=== PATIENT | female | born 1970 | race Caucasian/White ===

== ENCOUNTER → 2018-11-20 16:26 | Outpatient (CLI) | payer BC, SELFPAY ==
--- NOTE | 2018-11-20 16:38 | VDLE_ITS ---
Reason For Study: pain RIGHT GSV is normal. CFV is compressible, spontaneous, phasic, competent and demonstrates normal augmentation. FV is compressible, spontaneous, phasic, competent and demonstrates normal augmentation. POP V is compressible, spontaneous, phasic, competent and demonstrates normal augmentation. T/P Trunk is compressible. PTV is compressible. RT PerV is compressible. Procedure Exam performed in department. The exam was diagnostic. A preliminary report was called and/or faxed to Dr. Mendoza. Interpretation Summary There is no evidence of right lower extremity deep vein thrombosis. Right great saphenous vein appears patent and compressible segmentally. Ordering Physician: JESICA AGUIRRE Referring Physician: MD Reji Henrique Performed By: Leoncio Tompkins RVT
== END ==
PROVIDERS: Family Provider Family Medicine; PCP Family Medicine
DX: M79.604 Pain in right leg (principal)
CPT/HCPCS: 93971

== ENCOUNTER 2020-08-26 06:00 | Day surgery (SDC) | payer OTHER, SELFPAY ==
[2020-08-26 06:29] VITALS: BP 109/62; PULSE 80; RESP 18; TEMP 36.5; O2SAT 100; BMI 30.8
[2020-08-26] MEDS: Lidocaine 2% (20 ml mdv) 20 ML Vial (07:23)
--- NOTE | 2020-08-26 08:01 | PCM.OP.BLANK ---
Problems Associated Problem List Diagnoses (1) Left carpal tunnel syndrome: Operative Report Date of Procedure: 08/26/20 Preoperative diagnosis: Left Carpal tunnel syndrome Postoperative diagnosis: Same Title of operation: Open Left carpal tunnel release Surgeon: Dr. Arvind Montanez Anesthesia: Local Complications: None EBL: Minimal Indications for surgery: Patient seen and evaluated in the office. Diagnosed with carpal tunnel syndrome. They have failed adequate nonoperative treatment. Due to persistent symptoms they wish to proceed with carpal tunnel release surgery appropriate informed consent was obtained and signed. Details of procedure: Patient was taken to the OR and transferred to the OR table. Appropriate timeouts were performed. Well-padded tourniquet was applied to the operative upper extremity proximally. Area was prepped with alcohol. Local anesthetic was administered using 8 cc of 2% lidocaine plain. Operative extremity was prepped padded and draped in usual orthopedic sterile fashion for the procedure. Limb was exsanguinated. Tourniquet applied to 250 mmHg. Three centimeter incision was made over the palm. Carefully taken through skin, subcutaneous tissue, down onto the transverse carpal ligament. Transverse carpal ligament was opened at the midportion with a knife. Elevator was carefully placed underneath the transverse carpal ligament in a distal direction. I dissected down onto that with a knife. Elevator was then placed in a proximal direction, again directly underneath the transverse carpal ligament. I dissected down on that with a knife. Scissors were used at the proximal extent placed under direct visualization. This fully released the proximal extent of the transverse carpal ligament. At this point my small finger was placed proximally and distally to assure complete release of the transverse carpal ligament over the median nerve. FPL tendon was noted. No significant abnormalities were noted at the region of the carpal canal. Tourniquet was let down at 7 minutes. Bleeding controlled with the Bovie. Wound thoroughly irrigated. No undue bleeding noted. Skin edges were reapproximated with a 5-0 nylon. Sterile bandage was applied. Patient was awoken from the anesthetic. Transferred to the room bed. To recovery room in satisfactory condition. Patient will be discharged home. Ice and elevation recommended. Pain medication as needed. Follow-up in the office next week as scheduled. This note was generated with [employer] dictation software. It may contain incorrect words, spelling, and punctuation that were not noted in checking the note before signing.
[2020-08-26 08:09] VITALS: BP 109/62; BP 120/70; PULSE 70; RESP 16; TEMP 36.7; O2SAT 99
== END 2020-08-26 08:22 | disposition home or self-care (01) ==
LOC: SDC 06:06 → AC 06:07
PROVIDERS: PCP Family Medicine; Referring Provider Orthopaedic Surgery; Visit Provider Orthopaedic Surgery
PROC: (CPT 64721; principal; 2020-08-26 07:15)
DX: G56.02 Carpal tunnel syndrome, left upper limb (principal); F41.9 Anxiety disorder, unspecified; Z79.899 Other long term (current) drug therapy
CPT/HCPCS: 64721

== ENCOUNTER 2024-02-07 09:43 | Day surgery (SDC) | payer BC, SELFPAY ==
--- NOTE | 2024-02-05 11:10 | PAT.ANESEVAL ---
Pre-Assessment Diagnosis/Proposed Procedure Planned Operative Procedure(s): RIGHT SHOULDER ARTHROSCOPIC RTC REPAIR,SUBCROMIAL DECOMPRESSION MINI OPEN BICEPS TENODESIS Anesthesia History Anesthesia History - acquisition associate: Anesthesia History - acquisition associate Hx Hospitalization No 02/05/24 08:26 Any Problems With Anesthesia No 02/05/24 08:26 Cholinesterase deficiency No 02/05/24 08:26 You/Your Family Experience No 02/05/24 08:26 fever (hyperthermia) with Relationship Recent Exposure to Contagious No 02/04/24 11:59 Disease Does patient have nerve No 02/05/24 08:26 stimulator Patient instructed to have device shut off --Does patient have Pacemaker or ICD? When Was Last Pacemaker Check QUESTION #4 FULL TEXT: You/Your Family Experience fever (hyperthermia) with Anesthesia Last Oral Intake Last Oral intake: Last Oral Intake NPO since Meds taken in AM with sips of water? Meds patient instructed to take am of surgery PONV PONV - acquisition associate: PONV - acquisition associate Female Yes 02/05/24 08:26 HX of Motion Sickness Yes 02/05/24 08:26 HX of N/V After Surgery No 02/05/24 08:26 Non-Smoker Yes 02/05/24 08:26 Duration of Surgery greater Yes 02/05/24 08:26 than 60 minutes Number of Risk Factors 4 02/05/24 08:26 PONV Score Severe Risk 02/05/24 08:26 Height & Weight Height & Weight: Anesthesia: Height & Weight Height 5 ft 4 in 02/04/24 11:59 Respiratory Assessment Respiratory Assessment - acquisition associate: Respiratory Tract Infection Hx - acquisition associate Hx Respiratory Tract Infection No 02/05/24 08:26 STOP Sleep Apnea STOP Sleep Apnea - acquisition associate: STOP Sleep Apnea - acquisition associate Hx Hypertension No 02/05/24 08:26 Hx Sleep Apnea No 02/05/24 08:26 CPAP BIPAP Do you snore loudly (louder Yes 02/05/24 08:26 than talking or can be heard Do you often feel tired/ No 02/05/24 08:26 fatigued/ sleepy during daytime? Has anyone observed you stop No 02/05/24 08:26 breathing during sleep? STOP Results Negative 02/05/24 08:26 QUESTION #5 FULL TEXT : Do you snore loudly (louder than talking or can be heard through closed doors)? Tobacco Use History Tobacco Use History - acquisition associate: Tobacco Use History - acquisition associate Tobacco Use Smoking Status Never smoker 02/05/24 08:26 Hx Tobacco Use No 02/05/24 08:26 Years Smoking Packs Smoked per Day Smoking Cessation Date was within the last 15 years Hx Smoking Cessation Date Hx Smoking Cessation Counseling Hematologic Medial History Hematologic Hx - acquisition associate: Hematologic Medical Hx - comparison shopper Hx of Blood Transfusion No 02/05/24 08:26 Hx of Transfusion in last 3 No 02/05/24 08:26 Months Date of Last Transfusion (if within last 3 months) Ever experience any problems No 02/05/24 08:26 with transfusion(s)? Specify any problems Hx of Preganancy in last 3 No 02/05/24 08:26 Months Nurse Filling Out Transfusion DSCHRIBER 02/05/24 08:26 & Questions: Date: 02/05/24 02/05/24 08:26 Time: 08:02/05/24 08:26 Patient unable to answer at this time (ie. confused, unrespo /Reproduction History /Reproductive History - acquisition associate: /Reproductive Hx- acquisition associate Hx Now No 02/05/24 08:26 Gestational Age (in weeks): EDC: Hx Hx Para Hx Section SAB No 02/05/24 08:26 [facility] Medical History (Updated 02/05/24 @ 08:33 by Ivett Lehman) Post-menopausal Wears glasses Cancer Anxiety Alcohol use Difficulty swallowing Gastric reflux Shortness of breath on exertion Non-smoker History of Mohs micrographic surgery for skin cancer Home Medications ?Medication ?Instructions ?Recorded ?Last Taken ?Type citalopram 40 mg tablet (Celexa) 40 mg PO DAILY 08/19/20 Unknown History multivitamin 1 cap PO DAILY 08/19/20 Unknown History cholecalciferol (vitamin D3) 25 25 mcg PO DAILY 02/05/24 Unknown History mcg (1,000 unit) capsule (Vitamin D3) omeprazole 20 mg capsule,delayed 20 mg PO DAILY 02/05/24 Unknown History release Allergy/AdvReac Type Severity Reaction Status Date / Time No Known Allergies Allergy Verified 02/05/24 08:23 Surgical History (Updated 02/05/24 @ 08:33 by Ivett Lehman) Hx of colonoscopy Hx of appendectomy History of carpal tunnel surgery of left wrist History of carpal tunnel surgery of right wrist History of lobectomy of lung Social History Smoking Status: Never smoker Audit: Pertinent Findings Pertinent Findings EKG Perinent findings: EKG outside source 01/31/2024 shows sinus rhythm 76 bpm probable left atrial enlargement nonspecific T wave abnormality Recommendation Anesthesia Recommendation Anesthesia recommendation: OPTIMIZED for anesthesia
[2024-02-07] VITALS (11 sets, daily range): BP systolic 90–113; BP diastolic 49–72; PULSE 67–83; RESP 16–18; TEMP 36.1–37.3; O2SAT 91–99; BMI 31.1
[2024-02-07] MEDS: 0.9% Normal Saline (1000mL) 1,000 ML 15 ML IV (10:16)
--- NOTE | 2024-02-07 11:21 | PCM.PRE.AN2 ---
ASA Classification* ASA Classification ASA Classification: 2 Assessment & Plan Anesthesia* Anesthesia Assessment Anesthesia Assessment: Discussed sedation and/or anesthesia options, risks, benefits, and alternatives with patient/parents/legal guardian/POA. Questions invited. The patient/parents/legal guardian/POA seems to understand and agrees to proceed with anesthesia plan. Reviewed the physical assessment, medical history, allergy history and patient home medications list prior to surgery/procedure/anesthetic and documented any changes. Performed airway and anesthesia risk assessments. Anesthesia Type Anesthesia Type: General and Block (Patient is consented for interscalene block.) History Source History Obtained from:: Patient and Chart Anesthesia Focused Assessment* Temperature: 99.1 F Pulse Rate: 83 Blood Pressure: 105/69 Respiratory Rate: 18 Pulse Ox: 99 Oxygen Delivery Method: Room Air Airway Assessment Mouth opens: >3 cm Mallampati Score: II Teeth Condition: Caps/Crowns (Patient has 1 cracked cap On the left lower molar. It has been value and she has been told that it is stable.) Neck Range of motion (ROM): Full ROM Focused Labs Anesthesia Preop lab: CBC CHEMISTRY COAG Pre-Assessment Diagnosis/Proposed Procedure Planned Operative Procedure(s): RIGHT SHOULDER ARTHROSCOPIC RTC REPAIR,SUBCROMIAL DECOMPRESSION MINI OPEN BICEPS TENODESIS Anesthesia History Anesthesia History - deicer inspector electric: Anesthesia History - deicer inspector electric Hx Hospitalization No 02/05/24 08:26 Any Problems With Anesthesia No 02/05/24 08:26 Cholinesterase deficiency No 02/05/24 08:26 You/Your Family Experience No 02/05/24 08:26 fever (hyperthermia) with Relationship Recent Exposure to Contagious No 02/07/24 10:06 Disease Does patient have nerve No 02/05/24 08:26 stimulator Patient instructed to have device shut off --Does patient have Pacemaker No 02/07/24 10:06 or ICD? When Was Last Pacemaker Check QUESTION #4 FULL TEXT: You/Your Family Experience fever (hyperthermia) with Anesthesia Last Oral Intake Last Oral intake: Last Oral Intake NPO since 08:00 02/07/24 10:06 Meds taken in AM with sips of Yes 02/07/24 10:06 water? Meds patient instructed to see medlist 02/07/24 10:06 take am of surgery PONV PONV - deicer inspector electric: PONV - deicer inspector electric Female Yes 02/05/24 08:26 HX of Motion Sickness Yes 02/05/24 08:26 HX of N/V After Surgery No 02/05/24 08:26 Non-Smoker Yes 02/05/24 08:26 Duration of Surgery greater Yes 02/05/24 08:26 than 60 minutes Number of Risk Factors 4 02/05/24 08:26 PONV Score Severe Risk 02/05/24 08:26 Height & Weight Height & Weight: Anesthesia: Height & Weight Height 5 ft 4 in 02/07/24 10:06 Weight: 82.4 kg 02/07/24 10:06 Body Mass Index (BMI) 31.1 02/07/24 10:06 Respiratory Assessment Respiratory Assessment - deicer inspector electric: Respiratory Tract Infection Hx - deicer inspector electric Hx Respiratory Tract Infection No 02/05/24 08:26 STOP Sleep Apnea STOP Sleep Apnea - deicer inspector electric: STOP Sleep Apnea - deicer inspector electric Hx Hypertension No 02/05/24 08:26 Hx Sleep Apnea No 02/05/24 08:26 CPAP BIPAP Do you snore loudly (louder Yes 02/05/24 08:26 than talking or can be heard Do you often feel tired/ No 02/05/24 08:26 fatigued/ sleepy during daytime? Has anyone observed you stop No 02/05/24 08:26 breathing during sleep? STOP Results Negative 02/05/24 08:26 QUESTION #5 FULL TEXT : Do you snore loudly (louder than talking or can be heard through closed doors)? Tobacco Use History Tobacco Use History - deicer inspector electric: Tobacco Use History - deicer inspector electric Tobacco Use Smoking Status Never smoker 02/05/24 08:26 Hx Tobacco Use No 02/05/24 08:26 Years Smoking Packs Smoked per Day Smoking Cessation Date was within the last 15 years Hx Smoking Cessation Date Hx Smoking Cessation Counseling Hematologic Medial History Hematologic Hx - deicer inspector electric: Hematologic Medical Hx - pitch gatherer Hx of Blood Transfusion No 02/05/24 08:26 Hx of Transfusion in last 3 No 02/05/24 08:26 Months Date of Last Transfusion (if within last 3 months) Ever experience any problems No 02/05/24 08:26 with transfusion(s)? Specify any problems Hx of Preganancy in last 3 No 02/05/24 08:26 Months Nurse Filling Out Transfusion DSCHRIBER 02/05/24 08:26 & Questions: Date: 02/05/24 02/05/24 08:26 Time: 08:02/05/24 08:26 Patient unable to answer at this time (ie. confused, unrespo /Reproduction History /Reproductive History - deicer inspector electric: /Reproductive Hx- deicer inspector electric Hx Now No 02/05/24 08:26 Gestational Age (in weeks): EDC: Hx Hx Para Hx Section SAB No 02/05/24 08:26 Active Medications Active Medications: Current Medications Generic Name Dose Route Start Last Admin Trade Name Freq PRN Reason Stop Dose Admin Cefazolin Sodium 2 gm/ N/A 20 mls @ 400 mls/hr 02/07/24 11:45 IV 02/07/24 11:47 PREOP ONE Sodium Chloride 1,000 mls @ 15 mls/hr 02/07/24 10:00 02/07/24 10:16 IV 02/12/24 23:19 15 mls/hr .Q48H RILEY Administration Protocol PFSH Medical History Post-menopausal Wears glasses Cancer Anxiety Alcohol use Difficulty swallowing Gastric reflux Shortness of breath on exertion Non-smoker History of Mohs micrographic surgery for skin cancer Home Medications ?Medication ?Instructions ?Recorded ?Last Taken ?Type citalopram 40 mg tablet (Celexa) 40 mg PO DAILY 08/19/20 02/07/24 History multivitamin 1 cap PO DAILY 08/19/20 Unknown History cholecalciferol (vitamin D3) 25 25 mcg PO DAILY 02/05/24 Unknown History mcg (1,000 unit) capsule (Vitamin D3) omeprazole 20 mg capsule,delayed 20 mg PO DAILY 02/05/24 02/07/24 History release Allergy/AdvReac Type Severity Reaction Status Date / Time No Known Allergies Allergy Verified 02/07/24 10:02 Surgical History Hx of colonoscopy Hx of appendectomy History of carpal tunnel surgery of left wrist History of carpal tunnel surgery of right wrist History of lobectomy of lung Social History Smoking Status: Never smoker Review of Systems (Anesthesia) ROS Narrative System reviewed and no additional complaints, except as documented.
[2024-02-07] MEDS: Cefazolin 2 GM in Syringe IV (12:40)
[2024-02-07] MEDS: Epinephrine (1 mg/ml) 1 MG/ML VIAL (13:05)
[2024-02-07] MEDS: Bupiv/Epi 0.25% 30 ML Vial (14:07)
--- NOTE | 2024-02-07 15:22 | PCM.POSTANE2 ---
Anesthesia Postop Eval I Sum Anesthesia Postop Eval I Summary Anesthesia Postop Eval I Summary: Anesthesia Postop Eval I: Assessment Summary Airway patent Spontaneous unlabored respirations Mental status nausea Vomiting Anesthesia Postop Eval I: Fluid Summary Crystalloid volume administer (ml) Colloids volume administered ( ml) Blood Product volume administered (ml) Total IV fluid infused Anesthesia Postop Eval I: Summary Notes Anesthesia Complication Anesthesia Complication Comment: Post-operative progress note Anesthesia: Postop Eval II Evaluation Mental status: Awake and Calm Pain Level: 2 nausea: No Vomiting: No Complications Anesthesia Complication: No
--- NOTE | 2024-02-07 15:27 | PCM.POST.ANE ---
Anesthesia: Postop Eval I Current Vital Signs Temperature: 97.2 F Pulse Rate: 73 Blood Pressure: 102/64 Respiratory Rate: 16 Pulse Ox: 98 Oxygen Delivery Method: Room Air Assessment Airway patent: Yes Spontaneous unlabored respirations: Yes Mental status: Awake and Calm nausea: No Vomiting: No Anesthesia Complication: No Fluid Hydration Crystalloid volume administer (ml): 1,500 Total IV fluid infused: 1,500 Progress Note Anesthesia document: Postop Eval 1 completed: Yes
--- NOTE | 2024-02-07 15:50 | OP.PCM_ITS ---
Operative Report (Standard) Operative Information Date of Procedure: 02/07/24 Pre-Operative Diagnosis: 1. Right shoulder rotator cuff tear 2. Right shoulder subacromial impingement syndrome 3. Right shoulder long head biceps tendon tendinosis Post-Operative Diagnosis: 1. Right shoulder rotator cuff tear 2. Right shoulder subacromial impingement syndrome 3. Right shoulder long head biceps tendon tendinosis Surgery/Procedure Performed: 1. Right shoulder arthroscopic rotator cuff repair 2. Right shoulder arthroscopic subacromial decompression 3. Right shoulder mini open subpectoral biceps tenodesis vice president research: Yes Svp Monetization: Arabella Amato Tasks completed by assistant passenger locomotive engineer: Opening & closing, Implanting device and Hemostasis: Electrocautery Type of Anesthesia: General/Regional RN Documented Start/Stop Times: Operation Date: 02/07/24 11:45 Case Time Into Pre-Op 02/07/24 09:53 Out of Pre-Op 02/07/24 12:34 Anesthesia Start 02/07/24 12:40 Into Room 02/07/24 12:40 Procedure Start 02/07/24 13:05 Procedure End 02/07/24 14:24 Anesthesia End 02/07/24 14:29 Out of Room 02/07/24 14:29 Into Recovery 02/07/24 14:33 Out of Recovery 02/07/24 15:42 Into Phase II Recovery 02/07/24 15:44 Procedure Start Time: 13:05 Procedure Stop Time: 14:24 Select all DRAINS/GRAFTS/IMPLANTS that apply: Implanted device Implanted device details: Arthrex all suture fiber tack anchor x 2, Arthrex bio composite self punching 4.75 mm swivel lock anchor x 2, Arthrex metallic biceps button Estimated Blood Loss: 5 cc Fluids Replaced: Per anesthesia record Specimen collected: No Description of surgery: Patient was identified in the preoperative holding area by name, medical record number, and date of . The operative extremity was marked. All questions were answered to the patient satisfaction. Interscalene block was administered by the anesthesia staff prior to procedure. At time of her procedure, patient was brought to the operative suite positioned supine on a standard operating table. General anesthesia was induced and endotracheal tube placed. Patient was then positioned in the lateral decubitus position on the right side up. All bony prominences were well-padded. Axillary roll was placed. Right upper extremity was prepped and draped in normal, sterile orthopedic fashion. Right upper extremity was placed in arthroscopic traction with 10 pounds of traction force applied to the right arm throughout the arthroscopic portion of the case, approximately 45 minutes. We then performed a timeout confirming the side, site, and operation to be performed. No concerns were voiced and we elected proceed with surgery. 2 g Ancef was administered IV prior to the incision by anesthesia staff. I then established a standard posterior portal 2 fingerbreadths inferior medial to the posterior lateral border of the scapular spine. Blunt tipped trocar was used to luz the glenohumeral joint. Cannula was used to fill the joint with normal saline with epinephrine. Arthroscope was introduced. Extensive partial tearing and tendinosis was noted of the biceps tendon. Interval portal was then established. Biceps tenotomy was performed with the arthroscopic cautery. Degenerative labral fraying was noted debrided with arthroscopic shaver. Glenohumeral cartilage appeared pristine. Full-thickness tearing was noted the supraspinatus. Subscapularis appeared pristine. I then withdrew the arthroscopic instruments and reentered the shoulder and subacromial space. Lateral portal was established in standard fashion. Flexible cannula was placed procedure management. Extensive bursitis was noted and debrided with the arthroscopic shaver. The undersurface of the acromion was skeletonized with cautery. Prominent downsloping anterior spur was noted. This was resected in standard fashion with an arthroscopic bur performing a subacromial decompression. I then assessed the mobility of the rotator cuff which was excellent. I debrided the footprint. I placed 2 fiber tack anchors via percutaneous portal at the articular margin of the greater tuberosity. These were proximally 1 cm. Conjoint suture tapes were then passed through the supraspinatus near the musculotendinous junction with a scorpion suture passer from both anchors. A single limb of each suture was then passed through our lateral row anchors. Lateral row anchors were placed posterior and subsequently anteriorly in standard fashion with excellent reapproximation of [place] rotator cuff tissue and compression at the footprint. Small dogears were noted and reduced with the self locking mechanism of the lateral row anchors. The subacromial space was then thoroughly lavaged. Arthroscopic instruments were removed. Portal sites were closed with interrupted [id number] fashion 3-0 nylon suture. I then took the arm out of traction. 3 cm oblique incision was made along the inferior border the pectoralis major. The proximal humerus. Blunt dissection was carried down the level of the fascia. Fascia was opened just inferior to the pectoralis major. Long head of biceps tendon was then able to be retrieved out of the wound. There was severe tendinosis in the intertubercular portion of the tendon. A #2 FiberWire was used to whipstitch the tendon at the m usculotendinous junction. A limb of each suture was then passed alternating length through a biceps button. I drilled unit cortically in the subpectoral region of the proximal humerus after debriding the periosteum. Button was then placed in the intramedullary canal of the humerus and flipped. Sutures were tied to complete her onlay tenodesis. Wound was copiously irrigated with normal saline solution. Dermis was reapproximated with buried 3-0 Vicryl suture and skin finally reapproximated with a running subcuticular 4-0 Monocryl and skin glue. Field block was administered with 10 cc 0.25% bupivacaine with epinephrine. Bulky sterile compression dressing was applied. Patient placed in UltraSling. She was safely extubated in the operative suite and awakened from anesthesia. She was transferred to her gurney and subsequently to PACU in stable condition. She tolerated the procedure well without apparent complication. Postoperative plan: Sling x 6 weeks Aspirin 81 mg p.o. twice daily x 14 days postoperatively beginning postoperative day #1 Oxycodone prescription Saturday, Tylenol and ibuprofen encouraged Ice to the right shoulder Physical therapy to start in 2 weeks. Follow-up in 2 weeks for suture removal and wound check Surgical Findings: Full-thickness retracted supraspinatus tear, severe long head biceps tendinosis, prominent downsloping acromial spur Complications Complications: No Admit VTE Documentation VTE Present on Admission: No VTE Mechan Device Prophylaxis: SCD's VTE Pharm Prophylaxis ordered?: Yes
[2024-02-07] MEDS: oxyCODONE 5 MG Tablet 10 MG PO (15:59)
--- NOTE | 2024-02-07 16:38 | SUR.PHASEII ---
pain a 3 after 5mg oxycodone, improved
== END 2024-02-07 16:59 | disposition home or self-care (01) ==
LOC: SDC 09:44 → AC 09:46
PROVIDERS: PCP Nurse Practitioner Primary Care; Referring Provider Student in an Organized Health Care Education/Training Program; Visit Provider Student in an Organized Health Care Education/Training Program
PROC: (CPT 29827; principal; 2024-02-07 11:25)
DX: M75.101 Unspecified rotator cuff tear or rupture of right shoulder, not specified as traumatic (principal); M75.41 Impingement syndrome of right shoulder; K21.9 Gastro-esophageal reflux disease without esophagitis
CPT/HCPCS: 29827; 29826; 23430; 01630; C1713; J2405